=== PATIENT | female | born 1950 | race Caucasian/White ===

== ENCOUNTER 2017-02-08 16:36 | Emergency (ER) | payer MEDICARE ==
[~2017-02-08] VITALS: Wt 107.5 kg
--- NOTE | ~2017-02-08 | EKG ---
[place], [place] ELECTROCARDIOGRAM REPORT NAME: LINETTE MOE UNIT #: [id number] ROOM: DOCTOR: KRISSY HOLDER BIRTHDATE: [birth year] DOS: 02/08/2017 TIME: 1736 hours. Normal sinus rhythm at 85 beats per minute. Low voltage in precordial leads. No specific T-wave changes in the chest leads and then ____ aVL. Abnormal ECG. No previous tracing is available for comparison. Krissy Holder NP CM:EKGRPT:ELECTROCARDIOGRAM REPORT [phone] KRISSY HOLDER
[2017-02-08] MEDS ORDERED: LEVOTHYROXINE200 MC2 PO (17:11)
[2017-02-08] MEDS ORDERED: INVOKANA100 M1 PO (17:12)
[2017-02-08] MEDS ORDERED: AMBIEN10 M1 PO (17:12)
[2017-02-08] MEDS ORDERED: ATIVAN0.5 MG PO (17:12)
[2017-02-08] MEDS ORDERED: VICTOZA 2-0.6 MG/0.1 SQ (17:12)
[2017-02-08] MEDS ORDERED: LEXAPRO20 MG PO (17:13)
[2017-02-08] MEDS ORDERED: ASPIR LOW81 MG PO (17:13)
[2017-02-08] MEDS ORDERED: ISOSORBIDE30 MG PO (17:13)
[2017-02-08] MEDS ORDERED: GABAPENTIN TAB600 MG PO (17:14)
[2017-02-08] MEDS ORDERED: PAMELOR25 MG PO (17:14)
[2017-02-08] MEDS ORDERED: TOPROL XL25 MG PO (17:15)
[2017-02-08] MEDS ORDERED: RANEXA500 M1 PO (17:15)
[2017-02-08] MEDS ORDERED: LIPITOR10 MG PO (17:15)
[2017-02-08] MEDS ORDERED: NORTRIPTYLINE25 MG PO (17:15)
[2017-02-08 17:26] LABS: BASO # 0.1 10*3/uL (0.0-0.1); BASO % 1.2 % (0.0-1.0); EOS # 0.4 10*3/uL (0.0-0.4); EOS % 4.6 % (1.0-4.0); HEMATOCRIT 45.1 % (37.0-47.0); HEMOGLOBIN 15.1 g/dl (12.0-16.0); MEAN CELL VOLUME 83.2 fl (81.0-99.0); MEAN CORPUSCULAR HGB 27.9 pg (27.0-31.0); MEAN CORPUSCULAR HGB CONC 33.5 g/dl (33.0-37.0); MEAN PLATELET VOLUME 9.3 fl (9.6-12.3); MONO # 0.5 10*3/uL (0.1-1.0); MONO % 5.3 % (3.0-9.0); NEUT # 4.4 10*3/uL (2.3-7.9); NEUT % 46.6 % (47.0-73.0); PLATELET COUNT AUTOMATED 298 10*3/uL (130-400); RED BLOOD COUNT 5.42 10*6/uL (4.10-5.10); RED CELL DISTRI WIDTH 15.5 % (0-14.5); WHITE BLOOD COUNT 9.5 10*3/uL (4.8-10.8)
[2017-02-08 17:40] LABS: ALBUMIN 3.7 gm/dl (3.1-4.5); ALKALINE PHOSPHATASE 84 U/L (45-117); BUN 11 mg/dl (7-24); CHLORIDE 101 mmol/L (98-107); CREATININE 0.85 mg/dL (0.55-1.02); POTASSIUM 3.7 mmol/L (3.5-5.1); SGOT/AST 20 IU/L (3-35); SGPT/ALT 26 U/L (12-78); SODIUM 135 mmol/L (136-145); TOTAL PROTEIN 8.7 gm/dL (6.4-8.2)
[2017-02-08 17:43] LABS: ACETAMINOPHEN (TYLENOL) < 2.0 ug/ml (10-30); ETHYL ALCOHOL < 3.0 mg/dl (<3)
[2017-02-08 18:17] LABS: BILIRUBIN NEGATIVE (NEGATIVE); BLOOD NEGATIVE (NEGATIVE); CLARITY SL CLOUDY (CLEAR); COLOR YELLOW (YELLOW); GLUCOSE 3+ (NEGATIVE); KETONE NEGATIVE (NEGATIVE); LEUKO ESTERASE 1+ (NEGATIVE); NITRITE NEGATIVE (NEGATIVE); PH 5.5 (5.0-9.0); UROBILINOGEN 0.2 E.U./dl (0.2-1.0)
[2017-02-08 18:25] LABS: URINE AMPHETAMINES < 1000 (1000ng/ml); URINE BARBITURATES < 200 (200ng/ml); URINE BENZODIAZEPINES < 200 (200ng/ml); URINE CANNABINOIDS (THC) < 50 (50ng/ml); URINE COCAINE < 300 (300ng/ml); URINE METHADONE < 300 (300ng/ml); URINE OPIATES < 300 (300ng/ml)
[2017-02-08 18:27] LABS: URINE PHENCYCLIDINE < 25 (25ng/ml)
[2017-02-08 18:29] LABS: RBC 0-2 rbc/hpf (0-2)
[2017-02-08 18:30] LABS: BACTERIA 3+; WBC TNTC wbc/hpf (0-5)
== END 2017-02-08 23:41 | disposition home health service (06) ==
LOC: ED 16:36
PROVIDERS: Physician Assistant
DX: F23 Brief psychotic disorder (principal); Z79.82 Long term (current) use of aspirin; Z79.899 Other long term (current) drug therapy; Z88.2 Allergy status to sulfonamides; Z91.040 Latex allergy status; Z91.018 Allergy to other foods; Z88.8 Allergy status to other drugs, medicaments and biological substances

== ENCOUNTER 2017-02-08 22:10 | Inpatient (IN) | payer MEDICARE ==
[~2017-02-08] VITALS: Ht 152.4 cm; Wt 107.5 kg
--- NOTE | ~2017-02-08 | PR ---
[place], [place] PROGRESS [id number] #: [id number] ROOM: 310 DOCTOR: PEDRO VALDOVINOS MD BIRTHDATE: [birth year] DOS: 02/13/2017 CHIEF COMPLAINT: "I'm still so depressed, I'm not sleeping at all." SUMMARY OF THE VISIT: The patient was interviewed in the group therapy room. She engaged readily in conversation. She reports that she does not feel like she is getting better and still feels depressed. She notes specifically poor sleep with difficulty falling asleep, sleep continuity disturbance and mixing roll operator awakening. She wakes up tired and has little energy to engage in activities. She also complained of some pain in her coccyx area from a fall she sustained when she was at home. She voiced no other complaints. MENTAL STATUS: She is alert and oriented. Mood does seem to be depressed. There are some anxious overtones. There is no hypomania or rupert. There are no overt auditory or visual hallucinations. No delusions, no paranoia. Short, intermediate, and long-term memory seemed fully intact. PLAN: I will increase her Pamelor from 50 to 100 mg at bedtime bringing her into a more therapeutic range and hopefully aiding sleep rapidly. I will order Zostrix high potency cream t.i.d. to comply to her coccyx area to see if we can address this pain. We will continue to engage her in individual and mendez milieu activity, returning home or to at least restrictive environment when psychiatrically stable. PEDRO VALDOVINOS MD CM:PNTRANS [phone] PEDRO VALDOVINOS MD 02/13/17 1119 interface
--- NOTE | ~2017-02-08 | WRIGHTHP ---
[place], [place] PATIENT HISTORY AND PHYSICAL EXAM NAME: LINETTE MOE [facility] #: [id number] UNIT #: [id number] ROOM: 309 DOCTOR: PEDRO VALDOVINOS MD BIRTHDATE: [birth year] DOS: 02/09/2017 INITIAL PSYCHIATRIC EVALUATION. CHIEF COMPLAINT: "I just got so mixed up, I was actually hearing things and seeing things." HISTORY OF PRESENT ILLNESS: This is a 66-year-old white female who presented to the Emergency Room at [facility] acutely depressed as well as psychotic. The patient reports that most recently she has been experiencing both auditory and visual hallucinations, stating that she was convinced that her friend was entering and exiting her second floor window and she heard her voice in the bathroom. She realized that no one was there and was very frightened by this symptom complex. She also endorses significant depression and states that she has had significant problems with sleep, with difficulty falling asleep, sleep continuity disturbance and sales account coordinator awakening. She also endorses anergia, anhedonia, hopeless, helpless feelings, crying spells, and inability to cope. The patient has been seeing and has been prescribed Ativan and Ambien. Per her report, she reports that she has been overusing them, which could be leading to some of the symptoms that we are now seeing. She is admitted now to rule out organic factors, to re-stabilize on medication, to engage in individual and mendez milieu activity with the ultimate plan to return home. PAST MEDICAL HISTORY: Remarkable for coronary artery disease, diabetes, hypertension, hyperlipidemia, metabolic syndrome, morbid obesity. MENTAL STATUS: She is alert and oriented to person, place and time. Mood does seem to be depressed with some anxious overtones. There does not seem to be the presence of any hypomania or rupert and I did not detect the presence of any auditory or visual hallucinations. No psychosis. No delusions. Memory seems relatively intact. DIAGNOSIS: Major depression, recurrent with psychotic features. PLAN: I will now discontinue both her Ambien and her Ativan. She will have p.r.n. Ativan available if she requires it. I have discontinued her Lexapro and will now discontinue Pamelor in lieu of Remeron 15 mg at bedtime. I will monitor to see if the psychotic symptoms dissipate with the discontinuation of the sedative hypnotics and benzos. If they do not, I will consider adding an antipsychotic. We will also plan to schedule a sleep study post-discharge. She had 1 approximately 10 years ago that was negative. However, she has multiple risk factors suggestive of sleep apnea. We will engage her in individual and mendez milieu activity with the plan then to return home and follow up with or the physician of her choice. [place], [place] PATIENT HISTORY AND PHYSICAL EXAM NAME: ABHILINETTE [id number] #: [id number] ROOM: 309 DOCTOR: PEDRO VALDOVINOS MD BIRTHDATE: [birth year] PEDRO VALDOVINOS MD CM:HISPHYS:PATIENT HISTORY AND PHYSICAL EXAMINATION [id number] PEDRO VALDOVINOS MD 02/09/17 0901 interface
--- NOTE | ~2017-02-08 | PR ---
[place], [place] PROGRESS NOTE [id number] #: [id number] ROOM: 310 DOCTOR: PEDRO VALDOVINOS MD BIRTHDATE: [birth year] DOS: 02/14/2017 CHIEF COMPLAINT: "Oh, I slept so much better, thank you. I feel better this morning." SUMMARY OF THE VISIT: The patient was interviewed in her room. She was just getting out of bed and attending to her ADLs. She stopped and engaged readily in conversation. She did report that she slept soundly through the night having fallen asleep quicker, sleeping more soundly through the night without awakening and waking up this morning feeling rested. She denies any somnolence, lightheadedness or dizziness and states that overall, this was the best sleep she had been in several months. Her mood does seem to be already improving. There was no rupert or psychotic symptoms noted. MENTAL STATUS: She is alert and oriented to person, place and time. Mood does seem to be trending towards euthymia. Affect is much more appropriate. There were no symptoms that were suggestive of hypomania or rupert. There was no acute auditory or visual hallucinations. No delusions or paranoia are present. Memory for short, intermediate, and long-term event seems grossly intact. PLAN: At this point, I will maintain her Pamelor dose at 100 mg at bedtime augmented with Remeron 15 mg at bedtime. We will monitor for risk, benefits. Continue to engage in individual and mendez milieu activity. We will finalize discharge plans and discharge then to the least restrictive environment when psychiatrically stable. PEDRO VALDOVINOS MD CM:PNTRANS [phone] PEDRO VALDOVINOS MD 02/14/17 1128 interface
--- NOTE | ~2017-02-08 | DS ---
[place], [place] DISCHARGE SUMMARY NAME: LINETTE MOE [facility] #: [id number] UNIT #: [id number] ROOM: 310 DOCTOR: PEDRO VALDOVINOS MD BIRTHDATE: [birth year] DOS: 02/15/2017 CHIEF COMPLAINT: "I just got mixed up. I was hearing things and seeing things. I have just been so depressed and overwhelmed." HISTORY OF PRESENT ILLNESS: This is a 66-year-old white female who presented to the emergency room at [facility] acutely depressed as well as psychotic. She reports that most recently she has been experiencing both auditory and visual hallucinations, stating that she was convinced that a friend was entering and exiting her second floor window and she even heard the friend's voice in her bathroom. When she realized that there was no one there, she became frightened and felt that she needed to get some help quickly. She endorsed at this point in time increased depression with difficulty falling asleep, sleep continuity disturbance and drum handler awakening. She also endorsed anergia, anhedonia, hopeless, helpless feelings, crying spells, and inability to cope. The patient has been seeing Dr. Benitez as well as a counselor in [place], but reports that she has not been doing well and was overusing her prescription of Ativan at that time. She was admitted now to rule out organic factors to attempt to re-stabilize on medication, to engage in individual and mendez milieu activity ultimately returning home at least restrictive environment when psychiatrically stable. PAST MEDICAL HISTORY: Remarkable for coronary artery disease, diabetes, hypertension, hyperlipidemia, morbid obesity and metabolic syndrome. SUMMARY OF HOSPITAL COURSE: The patient was admitted to the unit where her Ambien and Ativan were both discontinued due to increased risk of side effects as well as her abuse of these agents. Her Lexapro that she was taking as an outpatient was discontinued in lieu of Remeron 15 mg at bedtime. Initially, her Pamelor which was dosed to 25 mg a day was discontinued until it was found that she was taking this as migraine prophylaxis and to help with chronic pain issues. Pamelor was reintroduced at 50 mg at bedtime and later increased to 100 mg at bedtime. With the combination of the Pamelor 100 mg at bedtime and Remeron 15 mg at bedtime, she was able to finally sleep through the night without any sleep continuity disturbance or drum handler awakening. She was able to wake refreshed and voiced positive plans for the future. She tolerated this medication regimen well and did not notice any excess sedation, drum handler somnolence, dizziness, lightheadedness or other side effects. The psychotic symptoms that she had been experiencing while at home dissipated and were most likely due to her misuse of Ambien and Ativan. The patient had improved significantly to return home. She will have followup with Dr. Benitez in his office. MENTAL STATUS AT DISCHARGE: The patient was alert and oriented to person, place, and time. Mood was euthymic. Affect appropriate. There was no symptom suggestive of rupert or hypomania. There were no further auditory or visual hallucinations. No delusions or paranoia were present. Short, intermediate, and long-term memory were fully intact. FINAL DIAGNOSES: Major depression, recurrent with psychotic features. [place], [place] DISCHARGE SUMMARY [id number] #: [id number] ROOM: 310 DOCTOR: PEDRO VALDOVINOS MD BIRTHDATE: [birth year] PLAN: All of her prescriptions except for her Zostrix have been E-scribed to [facility]. A Zostrix script was written and will be sent with her. Followup will be with Dr. Benitez in his office in [place]. PEDRO VALDOVINOS MD CM:ROSANNA [phone] PEDRO VALDOVINOS MD 02/15/17 1933 interface
[~2017-02-08 22:10] MED LIST: AMBIEN10 M1 PO; ASPIR LOW81 MG PO; ATIVAN0.5 MG PO; GABAPENTIN TAB600 MG PO; INVOKANA100 M1 PO; ISOSORBIDE30 MG PO; LEVOTHYROXINE200 MC2 PO; LEXAPRO20 MG PO; LIPITOR10 MG PO; NORTRIPTYLINE25 MG PO; PAMELOR25 MG PO; RANEXA500 M1 PO; TOPROL XL25 MG PO; VICTOZA 2-0.6 MG/0.1 SQ
--- NOTE | 2017-02-08 22:47 | NUR ---
LINETTE MOE a 66 year old F admitted via wheel chair from the ADMITTING as a voluntary admission. Arrived on unit at 2247. ALLERGIES: LATEX, ANTIHISTAMINES, SULFA, STRAWBERRIES. Vital signs are: [id number] 144/79. The client signed the following forms with stated understanding: Authorization For The Release of Medical Information, Clothing List, Consent to Voluntary Admission and Hospitalization, Consent and Release Forms/Receipt of Rights, Acknowledgement of Advance Directive Information, Behavioral Health Consent Form, and Informed Consent of Medications. Admitted under the services of Dr. ARUNA RABAGO,[facility]. A search was conducted and hazardous articles were removed. Client was oriented to the unit. SONNY LAM
--- NOTE | 2017-02-08 22:53 | NUR ---
THIS NURSE SPOKE AND INFORMED DR. STOVALL OF ADMISSION. CONSULT PUT UNDER DR. JOHNSON FOR MEDICAL MANAGEMENT
[2017-02-08 23:55] VITALS: BP 144/79
--- NOTE | 2017-02-09 05:30 | NUR ---
DR. STOVALL ON UNIT TO ASSESS PATIENT. MEDICATIONS CONTINUED. ACCU CHECKS ADDED ACHS
--- NOTE | 2017-02-09 06:19 | NUR ---
24 HR chart check completed.
[2017-02-09 07:45] LABS: CHOLESTEROL 198 mg/dL (<200); HDL CHOLESTEROL 37 mg/dl (40-60); LDL CHOLESTEROL 120 mg/dL (9-159); TRIGLYCERIDES 203 mg/dl (<150); VLDL CHOLESTEROL 41 mg/dL (6-40)
[2017-02-09 09:09] VITALS: BP 121/79
--- NOTE | 2017-02-09 12:02 | NUR ---
AT BEDSIDE TO ASSESS PATIENT. MADE AWARE PATIENT REFUSED GI COCTAIL AND THAT PATIENT STATES "I'M ALERGIC TO ALL THAT." PT REQUESTING "LIQUID ATIVAN, THEY TREATED ME WITH THAT AT [place] BEFORE AND IT WORKED." IV REMOVED AT THIS TIME PER . ONE ON ONE COMPLETED FOR ANXIETY RELIEF WITH MINIMAL EFFECT. PT CONTINUE TO VERBALIZE MEDICATION SEEKING BEHAVIORS. LAYING IN BED WITH EYES CLOSED, RESPIRATIONS EASY AND EVEN. NO ACUTE DISTRESS NOTED.
--- NOTE | 2017-02-09 12:29 | NUR ---
PHYSICAL THERAPY PAtient evaluated on 3, full evaluation to follow. PAtient is (I) with mobility, no PT skills/needs. Thank you for this referral. Zaira rocha,PT
--- NOTE | 2017-02-09 12:49 | NUR ---
Occupational Therapy evalaution completed this date on senior behavioral health unit with full eval to follow. Precautions include 3N, obesity, impaired cognition;memory, inappropriate humor, readily admits to using marijuana, etc. Recommend return to own apt with no further OT indicated at this time. Thank you for this referral. Arely Ayon OTR/l
--- NOTE | 2017-02-09 12:53 | NUR ---
Reminiscing Patient did attend group this morning as well as participate. 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 Patient is new and talked alot about herself and her life which the other patients didnt seem to mind hearing. Other patients joined in and asked patient questions as well. Patient very friendly to other patients and encouraging to their stories as well as has a sense of humor.
--- NOTE | 2017-02-09 15:43 | NUR ---
Painting/Socializing Patient did attend group this afternoon as well as participate. Patient is very social with a sense of humor also. Patient was painting a bird house while socializing and would make comments about herself or her abilities in a negative way. Patient is reminded to use positive thinking and I used positive reenforcement.
--- NOTE | 2017-02-09 18:03 | NUR ---
PT IS ALERT AND ORIENTED X4. ABLE TO MAKE NEEDS AND WANTS KNOWN TO STAFF. MOOD REMAINS DEPRESSED WITH FLAT AFFECT AT TIMES. DENIES ANY SI/HI. DENIES ANY SENSORY DISTURBANCES AND NONE ARE NOTED. CALM AND COOPERATIVE THIS SHIFT. MEDICATION COMPLIANT WITHOUT DIFFICULTY. HAS BEEN UP IN DAY ROOM MOST OF THE DAY INTERACTING WITH PEERS POSITIVELY. ATTENDING AND PARTICIPATING IN GROUP THERAPY. MEDICATION EDUCATION COMPLETED ON ALL NEW ORDERS AND DISCONTINUED ORDERES WITH GOOD EFFECT, PT VERBALIZES UNDERSTANDING. APPETITE GOOD THIS SHIFT. ON UNIT AND ASSESS PATIENT THIS SHIFT, MADE AWARE OF TSH AND UA RESULTS WITH NNO. WILL CONTINUE WITH Q15 MIN OBSERVATION CHECKS PER ORDERS. CONTINUE TO ENCOURAGE PARTICIPATION AND ATTENDANCE TO GROUP.
[2017-02-09 20:00] VITALS: BP 133/89
--- NOTE | 2017-02-10 05:03 | NUR ---
PT AWOKE VOICING C/O HIP PAIN LEVEL OF 6 ON A SCALE OF 1-10. PRN TYLENOL ADMINISTERED
--- NOTE | 2017-02-10 05:44 | NUR ---
PT REPORTS RELIEF TO HIP PAIN LEVEL OF 4 ON A SCALE OF 1-10. PRN TYLENOL EFFECTIVE
--- NOTE | 2017-02-10 07:03 | NUR ---
PT PLESANT AND COOPERATIVE WITH MEDS, SLEPT INTERMITTENTLY 6 HOURS TOTAL . VOICING GRIEF OF POOR RELATIONSHIP WITH DAUGHTERS AND FEARS WITH SURGERY. REINFORCED COPING SKILLS AND ALLOWED TO EXPRESS FEELINGS OF GUILT. REPORT BUILT WITH PT. PT
[2017-02-10 07:52] VITALS: BP 129/69
--- NOTE | 2017-02-10 11:20 | NUR ---
ARABELLA KERN AT BEDSIDE TO ASSESS PATIENT. NNO AT THIS TIME.
--- NOTE | 2017-02-10 11:31 | NUR ---
Painting,Decorating/Socializing We started this project in group afternoon. Patient did attend group this morning and she did start to participate. Patient was called away by executive secretary social welfare for a meeting
--- NOTE | 2017-02-10 15:49 | NUR ---
Finishing Dizzion Patient did attend group this afternoon but participated in Positive thinking skills/positive traits. Patient talked of herself and her life. Patient covers self esteeme issues up with humor. talked about coping skills and deep breathing for anxiety
--- NOTE | 2017-02-10 17:32 | NUR ---
SW AND PT COMPLETED PSYCHPSOCIAL ASSESSMENT. PT TO FOLLOW UP WITH DR. ACEVES AND DR. NELSON PEREZ.
[2017-02-10 20:00] VITALS: BP 122/72
--- NOTE | 2017-02-10 23:12 | NUR ---
PT VOICING GRIEF OVER ARGUMENT WITH DAUGHTER AND FEELINGS OF GUILT WITH PAST MISTAKES, PT ALLOWED TO VERBALIZE FEELINGS. DISCUSSED COPING SKILLS AND PT DESIRE TO MOVE AWAY FROM TOXIC RELATIONSHIPS AND BEGIN JOURNALING. PT VOICES CRUSHING ANXIETY STATING SHE FEELS LIKE SHE IS FULL OF SNAKES. PRN ATIVAN ADMINISTERED.
--- NOTE | 2017-02-11 00:05 | NUR ---
PT RESTING QUIETLY IN BED PRN ATIVAN EFFECTIVE
--- NOTE | 2017-02-11 04:44 | NUR ---
24 HR chart check completed.
--- NOTE | 2017-02-11 06:14 | NUR ---
PT CONTINUES TO VOICE DEPRESSION AND FEELINGS OF GRIEF. IMPROVED COMMUNICATION WITH STAFF, PT SLEPT THROUGOUT THE NIGHT WITH NO INTURRUPTIONS >6 HOURS. CONTINUE TO REINFORCE AND TEACH COPING SKILLS, CONTINUE POC
[2017-02-11 07:54] VITALS: BP 137/96
--- NOTE | 2017-02-11 11:25 | NUR ---
PATIENT ON UNIT TO SEE PATIENT.
[2017-02-11 20:17] VITALS: BP 122/78
--- NOTE | 2017-02-12 04:29 | NUR ---
24 HR chart check completed.
--- NOTE | 2017-02-12 06:47 | NUR ---
PT CONTINUES WITH SEXUALLY INNAPROPRIATE COMMENTS TOWARDS PEER. REDIRECTED AND LIMITS SET ON APPROPRIATENESS OF CONVERSATION IN DINING ROOM. PT IN AGREEMENT. PT VOICED NO TOPIS OF GRIEF, DENIES HALLUCINATIONS. EXCITED TO SPEAK TO SON TODAY IS HIS BIRTHDAY. MED COMPLIANT WITH OUT DIFFICULTY. PT REPORTS DIFFICULTY FALLING ASLEEP. STAYED AWAKE UNTILL 1 AM IN QUIET ROOM READING. SLEPT 6 HOURS.
[2017-02-12 08:02] VITALS: BP 103/62
--- NOTE | 2017-02-12 11:07 | NUR ---
PT COMPLAINING OF SYMPTOMS OF GASTROPARESIS STATING "I FEEL MY STOMACH FILLING UP BUT I CAN'T RELEASE MY BOWELS. I'M AFRAID OF EMBARASSING MYSELF". DR. DEUTSCH MADE AWARE OF PT'S REQUEST FOR 4 IMMODIUMS AND A DOSE OF PEPTOBISMOL THAT SHE STATES SHE TAKES AT HOME. DR. DEUTSCH ORDERED TO GIVE MILK OF MAGNESIA.
--- NOTE | 2017-02-12 13:13 | NUR ---
PT REPORTS NEUROPATHY PAIN RATING 5/10. GABAPENTIN GIVEN ORDERED.
--- NOTE | 2017-02-12 13:20 | NUR ---
DR. MUSTAFA CHECKED BLOOD PRESSURE AND REPORTS THAT BLOOD PRESSURE IS 170/100. DR. MCGEE STATES THAT HE THINKS THAT THE ELEVATED BLOOD PRESSURE IS A RESULT OF ANXIETY.
[2017-02-12 20:45] VITALS: BP 106/69
--- NOTE | 2017-02-12 21:30 | NUR ---
C/O OF BURNING ON URINATION. HAT FOR URINE SPECIMEN SUPPLIED. ENCOURAGED CRANBERRY JUICE AND WATER VS SODAS
--- NOTE | 2017-02-12 22:37 | NUR ---
PROBLEM 1--DEPRESSION--HALLUCINATION R/T MEDICATION ABUSE I- TEACH ABOUT EACH MEDICATION GIVEN AND POSSIABLE SIDE EFFECTS IF ABUSED. TEACH COPING TECHNIQUES TO USE IN PLACE OF MEDICATION, ENCOURAGE BECOMING INVOLVED IN APPROPRATE GROUP ACTIVITIES UPON DISCHARGE TO DECREASE ISOLATION P- USE LEARNED COPING SKILLS, TAKE MEDICATION ORDERED ONLY, GET INVOLVED IN AREA ACTIVITIES TO PREVENT ISOLATION
[2017-02-13 00:45] LABS: BILIRUBIN NEGATIVE (NEGATIVE); BLOOD NEGATIVE (NEGATIVE); CLARITY CLEAR (CLEAR); COLOR YELLOW (YELLOW); GLUCOSE 3+ (NEGATIVE); KETONE NEGATIVE (NEGATIVE); LEUKO ESTERASE NEGATIVE (NEGATIVE); NITRITE NEGATIVE (NEGATIVE); SPECIFIC GRAVITY <= 1.005 (1.005-1.030); UROBILINOGEN 0.2 E.U./dl (0.2-1.0)
[2017-02-13 00:52] LABS: EPITHELIAL CELLS 0-5
[2017-02-13 00:53] LABS: YEAST TRACE
--- NOTE | 2017-02-13 04:58 | NUR ---
24 HR chart check completed.
[2017-02-13 08:00] VITALS: BP 121/74
--- NOTE | 2017-02-13 13:09 | NUR ---
Socializing This is a monday with new patients. I like to talk with patients to find out their interest, likes, dislikes, pets etc... Patient did attend group this morning but was very quiet and withdrawn. Patient did not talk to other patients or contribute to the conversations
--- NOTE | 2017-02-13 14:20 | NUR ---
PATIENT IS ALERT AND ORIENTED TO PERSON, PLACE AND TIME; ABLE TO VOICE NEEDS. RESPIRATIONS ARE EASY, NON-LABORED ON ROOM AIR. MOOD IS STABLE AND CALM DEMEANOR. THOUGHT PROCESS IS ORGANIZED AND GOAL DIRECTED. DENIES ANY HALLUCINATIONS, DELUSIONS AND HI/SI. DENIES ANY PAIN. APPETITE IS GOOD WITH ADEQUATE FLUIDS. INTERACTIVE WITH STAFF AND OTHER PATIENTS. STAND BY ASSIST NEEDED. INDEPENDENT WITH MOST ACTIVITIES OF DAILY LIVING. CONTINENT OF BOWEL AND BLADDER. Q 15 MINUTE SAFETY CHECKS MAINTIANED. MEDICATION COMPLIANT.
[2017-02-13 20:00] VITALS: BP 120/89
--- NOTE | 2017-02-13 23:18 | NUR ---
INTERACTIVE WITH PEERS DURING SNACK. REDIRECTION PROVIDED FOR THEIR CONVERSATION SKIRTING SEXUAL INUENDOS. MEDICATION COMPLIANT. REFUSED CAPSASIN LOTION BECAUSE IT KOENIG.
--- NOTE | 2017-02-14 06:14 | NUR ---
24 HR chart check completed. SLEPT WELL PAST 2200PM
--- NOTE | 2017-02-14 07:50 | NUR ---
SAMI This is a very social game that gets everyone socializing talking and thinking. Patient did attend the game as well as participated. Patient was social,joking with others. Patient played 4-5 cards which kept her thinking and focusing
[2017-02-14 08:47] VITALS: BP 120/80; BP 94/54
--- NOTE | 2017-02-14 11:14 | NUR ---
DR. CHEN AND DR. MERCADO HERE TO SEE PT AT THIS TIME.
--- NOTE | 2017-02-14 15:09 | NUR ---
PT IS ALERT AND ORIENTED TO PERSON, PLACE, TIME AND SITUATION. MEMORY APPEARS INTACT. RESPIRATIONS EASY ON ROOM AIR. MOOD IS EUTHYMIC, AFFECT IS BROAD RANGE. SPEECH IS WNL AND COHERENT, ABLE TO MAKE NEEDS KNOWN WITHOUT DIFFICULTY. PT DENIES HALLUCINATIONS, NO RESPONSE TO INTERNAL STIMULI NOTED. PT DENIES SI/HI. NO PARANOIA/DELUSIONS NOTED. MEDICATION COMPLIANT WITHOUT DIFFICULTY. INTERACTIVE WITH STAFF AND PEERS, PARTICIPATES IN GROUPS AND ACTIVITIES. PT IS AMBULATORY WITH STEADY GAIT, INDEPENDENT WITH ADLS, CONTINENT OF BOWEL AND BLADDER, DISPLAYS GOOD APPETITE WITH ADEQUATE FLUID INTAKE. NO DISTRESS NOTED. Q15 MIN SAFETY CHECKS MAINTAINED, REFER TO [facility] FLOWSHEET FOR SPECIFIC MONITORING.
--- NOTE | 2017-02-14 16:01 | NUR ---
Exercise/Trivia- Morning group BINGO-Afternoon group Morning group of exercise helpts patients stay active and joints mobile,trivia helps with socialization,thinking,focusing and self esteem. Afternoon group helps with socialization,thinking,focusing and self esteem This Patient did attend both groups today as well as participate.Patient was very good at trivia today but also encourageing others when they answered correctly. Patient missed exercise due to being in the shower. Patient was in afternoon group only a very short time. When i commented on patient being so quiet she stated she had a migrain and needed to lay down. Patient spoke to a nurse who proceeded to get her meds and she laid down
--- NOTE | 2017-02-14 18:34 | NUR ---
SHIFT CHART CHECK COMPLETED.
[2017-02-14 20:40] VITALS: BP 117/75
--- NOTE | 2017-02-14 22:58 | NUR ---
PATIENT IS ALERT AND ORIENTED X4. NO MEMORY DEFICITS NOTED. MOOD IS STABLE, SPEECH IS WNL AND COHERENT, ABLE TO MAKE NEEDS KNOWN WITHOUT DIFFCULTY. DURING 1:1 PATIENT WAS PLEASANT UPON APPROACH AND STATED THAT SHE IS FEELING "OKAY TODAY" AND THAT "IM NOT DEPRESSED, BUT I LOOK AT DEPRESSION IT NEVER GOES AWAY, IT JUST GOES IN REMISSION SOMETIMES, AND IM DOING GOOD RIGHT NOW". DENIES SUICIDAL IDEATIONS, PATIENT INFORMED THAT IF THOUGHTS ARISE TO HARM SELF TO NOTIFY STAFF, PATIENT CONTRACTED FOR SAFETY. NO HALLUCINATIONS/DELUSIONS NOTED. MEDICATION COMPLIANT WITHOUT DIFFICULTY AFTER REVIEW. NO PHYSICAL COMPLAINTS VOICED. PATIENT CURRENTLY IN BED WITH EYES CLOSED. RESPIRATIONS EASY AND REGULAR. NO SIGNS OR SYMPTOMS OF DISTRESS NOTED. REFER TO [facility] FLOWSHEET FOR SPECIFIC MONITORING.
--- NOTE | 2017-02-15 02:10 | NUR ---
PATIENT RECIEVED PRN TYLENOL 650MG ORDERED FOR C/O "LEG PAIN" WITH A RATING OF 8/10, PATIENT STATED THAT "THIS USUALLY HAPPENS WHEN ITS RAINING OUT OR IF ITS GOING TO RAIN ". NO OTHER COMPLAINTS NOTED. NO SIGNS OR SYMPTOMS OF DISTRESS.
--- NOTE | 2017-02-15 03:20 | NUR ---
PATIENT LAYING DOWN WITH EYES CLOSED. RESPIRATIONS EASY AND REGULAR, NO SIGNS OR SYMPTOMS OF DISTRESS NOTED. PRN TYLENOL EFFECTIVE AT THIS TIME.
--- NOTE | 2017-02-15 03:26 | NUR ---
24 HOUR CHART CHECK COMPLETED.
--- NOTE | 2017-02-15 05:24 | NUR ---
PATIENT OBSERVED ON Q 15 MIN CHECKS TO HAVE SLEPT QUIETLY THROUGHOUT THE NIGHT WITH ONE BRIEF AWAKENINGS TO REQUEST A BLANKET AND PRN MEDICATION. RETURNED TO SLEEP WITHOUT DIFFICULTY. NO SIGNS OR SYMPTOMS OF DISTRESS NOTED.
[2017-02-15 08:16] VITALS: BP 125/69
[2017-02-15] MEDS ORDERED: NORTRIPTYLINE H50 M1 PO (09:37)
[2017-02-15] MEDS ORDERED: Zostrix 0.1% T (09:37)
[2017-02-15] MEDS ORDERED: MIRTAZAPINE15 M2 PO (09:37)
--- NOTE | 2017-02-15 15:12 | NUR ---
PATIENT IS ALERT AND ORIENT TO PERSON, PLACE AND TIME; ABLE TO VOICE NEEDS. MOOD IS STABLE; ORGANIZED AND GOAL DIRECTED. DENIES ANY HALLUCINATIONS, DELUSIONS, HI/SI OR PAIN/DISCOMFORT. MEAL INTAKES ARE GOOD WITH ADEQUATE FLUIDS. INDEPENDANT WITH ACTIVITIES OF DAILY LIVING. PATIENT HAS BEEN PARTICIPATING IN GROUP SESSION, INTERACTIVE WITH OTHER PATIENTS AND STAFF. COMPLIANT WITH MEDICATIONS. Q 15 MINUTE SAFETY CHECKS MAINTAINED.
--- NOTE | 2017-02-15 15:46 | NUR ---
Exercise/Letter to yourself-Morning group BINGO-Afternoon group. Exercising helps the patient to stay active and the mobility of their joints,the letter helps with coping skills,self esteem, making goals and creativity with decorating the card as well as focusing. BINGO in the afternoon group helps with focusing,self esteem, socializing, which all help your mind. Patient did attend morning group and very much enjoyed both activities. Patient said it felt good to write to yourself. We talked about the seasons and about writing a journal to help cope,to help relax, with anxiety etc.. Patient did not attend afternoon group. Patient stated she was going home today and wanted to get everything ready. Patient was encouraged x2 but still refused
--- NOTE | 2017-02-15 16:20 | NUR ---
DR AMBROCIO GAN NOTIFIED OF PATIENT'S DISCHARGE.
--- NOTE | 2017-02-15 18:50 | NUR ---
PATIENT READY FOR DISCHARGE, REVIEW DISCHARGE INSTRUCTIONS, ANSWERED ALL QUESTIONS AND PROVIDED 1:1 REGARDING GOING HOME WITH COUNSELING APPT, AND KEEPING ALL FOLLOW UP APPTS. ALL BELONING TAKE WITH PATIENT. PATIENT ASSISTED IN WHEELCHAIR TO PRIVATE VEHICLE WITH FAMILY. PATIENT DISCHARGED AT THIS TIME.
--- NOTE | 2017-02-15 21:00 | NUR ---
SW MADE REFERRAL TO [facility] FOR [facility] FOLOW UP. INTAKE PERSON DID NOT CALL BACK. LEFT . MARQUES SPOKE WITH DR. PERDOMO'S OFFICE. PT HAS APPINTMENT NEXT WEEK. 02/21 AT 3:30PM.
--- NOTE | 2017-02-15 21:03 | NUR ---
MARQUES SPOKE WITH BROTHER VINH TO SEE IF HE COULD OICK UP PT. HE CAN COME BETWEEN 6 - 7:30PM. JOEY NOTIFIED.
--- NOTE | 2017-02-15 21:04 | NUR ---
SW AND NURSE REVIEWED DISCHARGE APPOINTMENTS AND PAPERWORK WITH pT. COPTY WAS GIVEN TO PT. SW WILL CALL PT WITH CHARLINE FROM [facility]. PT DISCHARGED HOME.
== END 2017-02-15 18:50 | disposition home or self-care (01) | DRG 885 ==
LOC: 3N 22:10
PROVIDERS: ADMIT Psychiatry & Neurology Psychiatry
DX: F33.3 Major depressive disorder, recurrent, severe with psychotic symptoms (principal); E11.42 Type 2 diabetes mellitus with diabetic polyneuropathy; E88.81 Metabolic syndrome and other insulin resistance; F23 Brief psychotic disorder; Z68.42 Body mass index [BMI] 45.0-49.9, adult; G89.29 Other chronic pain; E66.01 Morbid (severe) obesity due to excess calories; I10 Essential (primary) hypertension; E78.5 Hyperlipidemia, unspecified; E03.9 Hypothyroidism, unspecified; I25.10 Atherosclerotic heart disease of native coronary artery without angina pectoris; Z90.710 Acquired absence of both cervix and uterus; Z82.49 Family history of ischemic heart disease and other diseases of the circulatory system; Z91.040 Latex allergy status; Z88.2 Allergy status to sulfonamides; Z88.8 Allergy status to other drugs, medicaments and biological substances; Z91.018 Allergy to other foods; Z79.82 Long term (current) use of aspirin; Z79.899 Other long term (current) drug therapy